=== PATIENT | male | born 1965 | race Caucasian/White ===

== ENCOUNTER 2017-04-28 20:07 | Emergency (ER) | payer OTHER ==
[~2017-04-28 20:07] MED LIST: ALDACTONE25 MG PO; AMITRIPTYLINE H50 MG PO; ATENOLOL50 MG PO; ATIVAN0.5 M1 PO; BUSPIRONE HCL15 MG; BUSPIRONE15 M1 PO; CLOTRIMAZOLE TR10 M1; FAMOTIDINE40 MG PO; FLUOCINONIDE0.05% TOP; HYDROXYZINE HYD25 MG PO; KEN5C TOP; LAC PO; LEVOFLOXACIN500 M1 PO; LISINOPRIL40 MG PO; LORAZEPAM0.5 MG PO; NORCO1 TA2 PO; SERTRALINE HYDR50 M1 PO; TRAMADOL50 M1 PO; XALATAN2.5 ML OU
[2017-04-28 21:57] VITALS: BP 142/78
== END 2017-04-28 21:57 | disposition home or self-care (01) ==
LOC: ED 20:07
DX: S81.011A Laceration without foreign body, right knee, initial encounter (principal); S41.112A Laceration without foreign body of left upper arm, initial encounter; I10 Essential (primary) hypertension; J44.9 Chronic obstructive pulmonary disease, unspecified; W01.0XXA Fall on same level from slipping, tripping and stumbling without subsequent striking against object, initial encounter; Y93.89 Activity, other specified; Y99.8 Other external cause status; Y92.89 Other specified places as the place of occurrence of the external cause

== ENCOUNTER 2017-05-10 09:00 | Emergency (ER) | payer OTHER ==
[~2017-05-10] VITALS: Ht 160 cm; Wt 75.0 kg
[2017-05-10 09:03] VITALS: BP 152/95
== END 2017-05-10 09:33 | disposition home or self-care (01) ==
LOC: ED 09:00
DX: S81.011D Laceration without foreign body, right knee, subsequent encounter (principal); I10 Essential (primary) hypertension; B19.20 Unspecified viral hepatitis C without hepatic coma; X58.XXXD Exposure to other specified factors, subsequent encounter; Y99.8 Other external cause status; Y92.89 Other specified places as the place of occurrence of the external cause

== ENCOUNTER 2017-08-24 15:23 | Emergency (ER) | payer OTHER ==
[2017-08-24 18:21] VITALS: BP 102/72
== END 2017-08-24 18:21 | disposition home or self-care (01) ==
LOC: ED 15:23
DX: G43.909 Migraine, unspecified, not intractable, without status migrainosus (principal); I10 Essential (primary) hypertension; Z79.899 Other long term (current) drug therapy
CPT/HCPCS: J0780; J1885

== ENCOUNTER 2017-09-17 18:45 | Emergency (ER) | payer OTHER ==
[~2017-09-17] VITALS: Ht 160 cm; Wt 70.3 kg
[2017-09-17 23:22] VITALS: BP 111/81
== END 2017-09-17 23:22 | disposition home or self-care (01) ==
LOC: ED 18:45
DX: S39.011A Strain of muscle, fascia and tendon of abdomen, initial encounter (principal); B19.20 Unspecified viral hepatitis C without hepatic coma; Z79.899 Other long term (current) drug therapy; Z90.89 Acquired absence of other organs; X58.XXXA Exposure to other specified factors, initial encounter; Y93.89 Activity, other specified; Y99.8 Other external cause status; Y92.89 Other specified places as the place of occurrence of the external cause
CPT/HCPCS: J1885

== ENCOUNTER 2017-11-03 19:02 | Emergency (ER) | payer OTHER ==
[~2017-11-03] VITALS: Ht 167.6 cm; Wt 72.6 kg
[2017-11-03 19:05] VITALS: BP 134/59
== END 2017-11-03 21:28 | disposition home or self-care (01) ==
LOC: ED 19:02
DX: S81.812A Laceration without foreign body, left lower leg, initial encounter (principal); I10 Essential (primary) hypertension; W01.0XXA Fall on same level from slipping, tripping and stumbling without subsequent striking against object, initial encounter; Y93.89 Activity, other specified; Y92.89 Other specified places as the place of occurrence of the external cause; Y99.8 Other external cause status
CPT/HCPCS: J1885; J2001

== ENCOUNTER 2017-11-05 13:24 | Emergency (ER) | payer OTHER ==
[2017-11-05 13:25] VITALS: BP 124/92
== END 2017-11-05 15:03 | disposition home or self-care (01) ==
LOC: ED 13:24
DX: S81.812D Laceration without foreign body, left lower leg, subsequent encounter (principal); I10 Essential (primary) hypertension; F41.9 Anxiety disorder, unspecified; X58.XXXD Exposure to other specified factors, subsequent encounter

== ENCOUNTER 2017-11-15 11:59 | Emergency (ER) | payer OTHER ==
[~2017-11-15] VITALS: Ht 160 cm; Wt 72.7 kg
[2017-11-15 12:05] VITALS: BP 108/77; Ht 160 cm; Wt 72.7 kg
== END 2017-11-15 14:20 | disposition home or self-care (01) ==
LOC: ED 11:59
DX: S81.812D Laceration without foreign body, left lower leg, subsequent encounter (principal); X58.XXXD Exposure to other specified factors, subsequent encounter

== ENCOUNTER 2019-03-12 10:53 | Emergency (ER) | payer OTHER ==
[~2019-03-12] VITALS: Ht 160 cm; Wt 69.9 kg
[2019-03-12 11:26] VITALS: Ht 160 cm; Wt 69.9 kg
[2019-03-12 13:10] VITALS: BP 108/77
== END 2019-03-12 13:10 | disposition home or self-care (01) ==
LOC: ED 10:53
DX: S83.92XA Sprain of unspecified site of left knee, initial encounter (principal); I10 Essential (primary) hypertension; F41.9 Anxiety disorder, unspecified; F32.9 Major depressive disorder, single episode, unspecified; W18.39XA Other fall on same level, initial encounter; Y93.89 Activity, other specified; Y92.89 Other specified places as the place of occurrence of the external cause; Y99.8 Other external cause status
CPT/HCPCS: J1885